=== PATIENT | female | born 1955 | race Caucasian/White ===

== ENCOUNTER 2019-06-29 01:05 | Day surgery (SDC) | payer MEDICARE, OTHER, SELFPAY ==
[2019-06-18 14:46] VITALS: BMI 37.1
--- NOTE | 2019-06-28 11:36 | HP_ITS ---
DATE OF SERVICE: DATE OF SURGERY: 06/29/2019. CHIEF COMPLAINT: Postmenopausal bleeding. HISTORY OF PRESENT ILLNESS: The patient is a 63-year-old menopausal female who presented to the office in May due to complaints of having a 7-day period. She denied any cramping. She did have a subsequent ultrasound. The ultrasound showed the endometrial complex of 17 mm, also noted to have a 1.8 cm right ovarian cyst. It was recommended to do followup in a year. The patient does not have any pelvic pain. She was informed possible etiologies of the postmenopausal bleeding to include possible polyp, precancer or cancerous cells or hyperplasia. She was informed of the options of office endometrial biopsy and risks, benefits, limitations discussed with her versus a hysteroscopy, dilation and curettage and biopsy of any abnormal areas as needed. The patient opted for the direct visualization. The patient does have a history of being on hormone replacement therapy, but she has been off the hormone replacement therapy for over 6 months. PAST MEDICAL HISTORY: She has: 1. Hypothyroidism. 2. Also history of chronic hypertension. 3. Asthma. 4. History of overactive bladder. 5. History of gastroesophageal reflux. ALLERGIES: NO KNOWN DRUG ALLERGIES. SURGERIES: She has had sinus surgery. SOCIAL HISTORY: No alcohol, no tobacco, no drugs. FAMILY HISTORY: Diabetes with father and sister. Maternal grandmother with the unspecified cancer. Mother with history of heart disease. Sister with history of stroke. Father with history of hypertension. MEDICATION: 1. Levothyroxine 100 mcg. 2. Metoprolol ER 100 mg once a day. 3. Omeprazole 20 mg once a day. 4. Spiriva once a day. 5. VESIcare 10 mg once a day. 6. Breo 1 inhalation once a day. REVIEW OF SYSTEMS: CONSTITUTIONAL: Negative. HEENT: Negative. CARDIOVASCULAR: No chest pain. RESPIRATORY: Stable cough on medication. GASTROINTESTINAL: Negative. GENITOURINARY: Controlled overactive bladder with medication. GYNECOLOGIC: Per HPI. PSYCHIATRIC: Negative. PHYSICAL EXAMINATION: VITAL SIGNS: Height is 5 feet 6 inches, her weight is 230, blood pressure 129/84, pulse 79, respirations 12. GENERAL: The patient is a 63-year-old female. No deformities. HEENT: Pupils equal, round, reactive to light. Nose and throat are clear. CARDIOVASCULAR: Regular rate and rhythm. LUNGS: Clear to auscultation bilaterally. ABDOMEN: Soft, nontender, nondistended. No masses. BACK: No CVA tenderness. EXTREMITIES: Nontender. PELVIC: Normal external female genitalia. Vagina, she had a small amount of blood in the vault of cervix. No active bleeding. Bimanual exam, uterus was normal size, shape and consistency, nontender. Adnexa, nontender bilaterally. No masses palpated bilaterally. Perineum was normal. ASSESSMENT: 1. Postmenopausal bleeding. 2. Abnormal thickened endometrium. PLAN: The patient has opted to do direct visualization with diagnostic hysteroscopy, dilation and curettage, possible MyoSure of the abnormal areas as needed. She has been counseled regarding her nonsurgical options. Risks and benefits of surgery to include bleeding, infection, injury to other organs in the area, risk of further more intensive surgeries in the future if there are any abnormalities with the pathology, risk of uterine perforation, bleeding, laparoscopy, blood transfusion, risk of accumulation of fluid in the lungs. Her questions were answered. The patient agrees with the procedure. D I MT: Kimmy
[2019-06-29] MEDS: LACTATED RINGERS 1,000 ML 30 ML IV CONT (07:01)
[2019-06-29 07:14] VITALS: BP 127/67; PULSE 66; RESP 16; TEMP 37.1; O2SAT 95
--- NOTE | 2019-06-29 07:42 | WPDANESEPPF ---
Anes - Initial Pre Proc Eval Procedure: Operation Date: 06/29/19 08:30 Proposed Procedures p Hysteroscopy Dilation and Curettage - Germán Mora MD Date/Time: 06/29/19 07:42 Surgeon: Germán Mora MD Pre Op Diagnosis: Post Menopausal Bleeding Patient Data Age: 63 Gender: F Height: 1.68 m Weight: 101.3 kg Last Vital Signs Temp 37.1 C 06/29/19 07:14 Pulse 66 06/29/19 07:14 Resp 16 06/29/19 07:14 BP 127/67 06/29/19 07:14 Pulse Ox 95 06/29/19 07:14 Allergies Allergy/AdvReac Type Severity Reaction Status Date / Time No Known Allergies Allergy Verified 06/29/19 07:29 Home Medications Medication Instructions Recorded Confirmed Type calcium carb and citrate-vitD3 1 tablet PO DAILY 06/18/19 06/18/19 History cholecalciferol (vitamin D3) 2,000 unit PO DAILY 06/18/19 06/18/19 History cyanocobalamin (vitamin B-12) 2,500 mcg PO DAILY 06/18/19 06/18/19 History docosahexanoic acid 450 mg PO DAILY 06/18/19 06/18/19 History fluticasone propionate 2 spray INTRANASAL DAILY 06/18/19 06/18/19 History glucosamine [id number] 1 tablet PO DAILY 06/18/19 06/18/19 History levothyroxine 112 mcg PO DAILY 06/18/19 06/29/19 History metoprolol succinate 25 mg PO HS 06/18/19 06/29/19 History omeprazole 20 mg PO DAILY 06/18/19 06/18/19 History solifenacin [Vesicare] 10 mg PO DAILY 06/18/19 06/18/19 History vit A,C and E-dietary suppl#12 1 tablet PO DAILY 06/18/19 06/18/19 History ECG: Date of Service: 06/25/19 Procedure(s): CA 12 lead EKG Accession Number(s): [id number] cc: ~ Measurements Intervals [place] Rate: 64 P: 25 [place]: 205 QRS: -14 QRSD: 88 T: 5 QT: 385 QTc: 397 Interpretive Statements SINUS RHYTHM BORDERLINE AV CONDUCTION DELAY VOLTAGE CRITERIA FOR LVH DELAYED PRECORDIAL R/S TRANSITION BASELINE ARTIFACT- I, II, AVR, AVL BORDERLINE ECG Electronically Signed On 06-25-2019 10:50:33 ACID WASH OPERATOR by Lee Jewell D.O. Patient hx anesthesia problems: none Family hx anesthesia problems: none Prior Surgeries: FESS JUL 2017 & OCTOBER 2017 @ [facility] JUL 2018 [facility] Past Medical History Medical History (Updated 06/29/19 @ 07:46 by Earl Oneal MD) Arthritis (Acute) Chronic cough (Acute) HTN (hypertension) (Acute) Hypothyroidism (Acute) Osteoporosis (Acute) Family History Family History (Updated 04/24/19 @ 13:30 by DOCTOR UNKNOWN) Father Hypertension Family history of diabetes mellitus in first degree relative Sibling Family history of diabetes mellitus in first degree relative Grandparent Family history of malignant neoplasm Social History Social History Smoking status: Never smoker Second hand tobacco smoke exposure: No Alcohol intake: current Anes - Eval Final PreProcedure Day of Procedure 06/29/19 07:42 Patient weight: obese Heart: regular rate and rhythm Lungs: clear to auscultation and normal air movement Airway: Mallampati scale Neurological: alert and oriented Last oral intake: >/= 8 hours ASA classification: III Emergent: no Anesthetic plan: proceed Anesthesia type and monitoring: general LMA Informed Consent: The patient's anesthetic plan and its attendant risks and benefits were discussed with the patient/family/POA. Questions were solicited and answers provided to the satisfaction of the patient/family/POA.
--- NOTE | 2019-06-29 08:18 | WPDHPUPDATE1 ---
History and Physical Update Update Date/Time: 06/29/19 08:18 History and Physical has been reviewed, including an updated exam of the patient. There are NO changes in the patient's condition. Risks, benefits, and alternatives have been discussed and questions answered. Patient agrees to proceed with procedure.
[2019-06-29] MEDS: LIDOCAINE HCL 1% LOCAL INJ 20 ML VIAL 50 ML INFILTRATE (08:49)
[2019-06-29] MEDS: KETOROLAC 30 MG/ML VIAL (*BKC) IV PUSH (08:56)
--- NOTE | 2019-06-29 09:01 | PM.PROC ---
Date of procedure: 06/29/19 Pre-op diagnosis: Post Menopausal Bleeding Post-op diagnosis: same Procedure performed: Diagnostic Hysteroscopy and Dilation and Currettage Description of procedure: After informed consent was obtained patient was taken to the operating room. Adequate IV sedation was obtained. she was placed in high lithotomy position and prepped and draped in sterile fashion. Attention was turned to the vagina. Speculum was inserted. Single-tooth tenaculum placed on anterior lip of the cervix. The uterus was sounded to 8 centimeters. The cervix was dilated to a size 8 Borrero dilator. The hysteroscope was inserted. The cavity assessment was normal. There are no lesions or abnormal areas noted. The hysteroscope was removed and a sharp curettage was performed. Scant tissue obtained. An endocervical curettage was also performed. The tenaculum was removed hemostasis was noted at the tenaculum site. The speculum was removed. The patient tolerated the procedure well. There was a 50 cc discrepancy of insufflation fluid of normal saline. Patient was taken to recovery room in stable condition the sponge count was correct x3. Anesthesia: MAC and local Surgeon: Germán Mora MD Estimated blood loss (mL): 5 Drains: No Packing: No Pathology: yes (1. Endocervical currettage 2. Endometrial currettings) Complications: No immediate complications Condition: stable Disposition: same day Findings: Uterus sound to 8cm, uterine cavity normal appearing, no lesions. Insufflation fluid 450ccI/400ccout.
[2019-06-29 09:10] VITALS: BP 101/57; PULSE 65; RESP 16; O2SAT 94
[2019-06-29 09:30] VITALS: BP 123/74; PULSE 60; RESP 15
--- NOTE | 2019-06-29 09:42 | SUR.OPER ---
ESTIMATED BLOOD LOSS- 5 ML
[2019-06-29 10:00] VITALS: BP 116/70; PULSE 59; RESP 15
[2019-06-29 10:17] LABS: Add Urine Microscopic? YES; Appearance Urine Cloudy (Clear); Bacteria Urine Trace /hpf; Bilirubin Urine Negative (Negative); Blood Urine 3+ (Negative); Color Urine Yellow (Yellow); Glucose Urine UA Negative (Negative); Ketones Urine Negative (Negative); Leukocyte Esterase Ur 3+ LEU/UL (Negative); Mucus Urine Rare /lpf; Nitrate Urine Positive (Negative); Protein Urine Negative (Negative); RBC Urine >75 /hpf (0-2); Specific Grav Ur 1.019 (1.001-1.035); Squamous Epithelial Cell Urine Rare /hpf (Few); Urobilinogen Urine Negative mg/dL (<2.0); WBC Clumps Urine Present /HPF; WBC Urine >75
== END 2019-06-29 10:08 | disposition home or self-care (01) ==
PROVIDERS: PCP Family Medicine; Visit Provider Obstetrics & Gynecology
PROC: 0U5B8ZZ Destruction of Endometrium, Via Natural or Artificial Opening Endoscopic (ICD-10-PCS; CPT 58563; principal; 2019-06-29 08:30)
DX: N95.0 Postmenopausal bleeding (principal); N85.8 Other specified noninflammatory disorders of uterus; I10 Essential (primary) hypertension; E03.9 Hypothyroidism, unspecified; M81.0 Age-related osteoporosis without current pathological fracture; M19.90 Unspecified osteoarthritis, unspecified site; E66.9 Obesity, unspecified; Z68.36 Body mass index [BMI] 36.0-36.9, adult; Z79.899 Other long term (current) drug therapy
CPT/HCPCS: 58558; 81001; 87086; 87088; 88305; A9270; J0131; J0690; J1885; J2250; J2704; J3010; J7030; J7120

== ENCOUNTER → 2020-10-01 17:40 | Outpatient (CLI) | payer MEDICARE, SELFPAY ==
--- NOTE | ~2020-10-01 | DEXA_ITS ---
Bone Density Report Name: Mayi Nielson Age: 64 Sex: Female Ethnicity: White Date of : 1955 Indication: postmenopausal; screening for osteoporosis; Referring Provider: NIKKI REILLY Study: Bone densitometry was performed. Exam Date: October 01, 2020 Accession number: [id number] Bone Density: Region BMD T-score Z-score Classification AP Spine (L1-L4) 0.995 -0.5 1.4 Normal Femoral Neck (Left) 0.763 -0.8 0.8 Normal Total Hip (Left) 0.910 -0.3 1.1 Normal Femoral Neck (Right) 0.801 -0.4 1.2 Normal Total Hip (Right) 0.978 0.3 1.6 Normal Total Hip Mean 0.944 0.0 1.4 Normal World Health Organization criteria for BMD impression classify patients as: Normal (T-score at or above -1.0), Osteopenia (T-score between -1.0 and -2.5), or Osteoporosis (T-score at or below -2.5). 10-year Fracture Risk: FRAX not reported because: All T-scores for Spine Total, Hip Total, Femoral Neck at or above -1.0 Previous Exams: Region Exam Age BMD T-score BMD Change BMD Change Date g/cm2 vs Baseline vs Previous AP Spine(L1-L4) 10/01/2020 64 0.995 -0.5 0.107* 0.038* 07/07/2018 62 0.957 -0.8 0.069* -0.029* 04/22/2016 60 0.986 -0.6 0.098* -0.034 02/16/2013 57 1.020 -0.2 0.132 0.061* 12/25/2010 55 0.959 -0.8 0.071 -0.097* 10/11/2008 52 1.056 0.1 0.168 0.133 10/10/2006 50 0.922 -1.1 0.034* 0.034* 08/16/2005 49 0.888 -1.4 Total Hip(Left) 10/01/2020 64 0.910 -0.3 -0.030* -0.047* 07/07/2018 62 0.957 0.1 0.018 -0.033* 04/22/2016 60 0.990 0.4 0.050* 0.059 02/16/2013 57 0.931 -0.1 -0.009 0.015 12/25/2010 55 0.916 -0.2 -0.023 0.015 10/11/2008 52 0.901 -0.3 -0.038 -0.038 10/10/2006 50 0.939 0.0 Total Hip(Right) 10/01/2020 64 0.978 0.3 -0.039* -0.020 07/07/2018 62 0.998 0.5 -0.019 -0.052* 04/22/2016 60 1.050 0.9 0.033* 0.091 02/16/2013 57 0.958 0.1 -0.058 -0.021 12/25/2010 55 0.979 0.3 -0.038 -0.004 10/11/2008 52 0.983 0.3 -0.034 -0.034 10/10/2006 50 1.017 0.6 *Denotes significance at 95% confidence level, LSC for AP Spine = 0.022 g/cm2, LSC for Total Hip = 0.027 g/cm2 Clinical Information Provided by Patient:
--- NOTE | ~2020-10-01 | MM_ITS ---
EXAMINATION: MM screening denis BI w osvaldo HISTORY: Screening mammogram TECHNIQUE: Craniocaudal and mediolateral oblique 3-D tomosynthesis images were obtained and synthetic 2-D images were generated. CAD analysis was submitted and interpreted. COMPARISON: 03/30/2019 diagnostic right digital mammogram and limited right breast ultrasound 03/22/2019, 02/23/2018, 04/22/2016 bilateral digital screening mammogram examinations BREAST PARENCHYMAL COMPOSITION: There are scattered areas of fibroglandular density. FINDINGS: There are 2 biopsy markers on the right; history of 2 prior benign right breast biopsies. S cattered benign calcifications are noted. There is no evidence of suspicious mass, calcification, or architectural distortion to suggest malignancy in either breast. There has been no suspicious interva l change. IMPRESSION: 1. No mammographic evidence of malignancy. 2. Recommend routine screening mammography in one year. BI-RADS Category 2: Benign finding(s). Reviewed, dictated and finalized at location A. ER SELECTOR
== END ==
PROVIDERS: Visit Provider Obstetrics & Gynecology
DX: Z12.31 Encounter for screening mammogram for malignant neoplasm of breast (principal); Z78.0 Asymptomatic menopausal state
CPT/HCPCS: 77063; 77067; 77080

== ENCOUNTER → 2020-10-23 15:44 | Outpatient (CLI) | payer MEDICARE, SELFPAY ==
--- NOTE | ~2020-10-23 | MR_ITS ---
EXAMINATION: MR knee LT wo con DATE: 10/23/2020 16:47 INDICATION: Left knee pain TECHNIQUE: Magnetic resonance imaging (MRI) of the left knee was performed without intravenous contra st. Sequences included coronal PD-weighted FSE, coronal PD-weighted FS FSE, sagittal T2-weighted FSE , sagittal PD-weighted FS FSE and axial PD weighted fat saturated FSE. COMPARISON: None. FINDINGS: Medial compartment: Medial meniscus is normal. Partial-thickness cartilage loss with relatively smooth chondral surface a long the anterior weightbearing medial femoral condyle. More preserved cartilage thickness but with d eeper fissuring and subtle underlying cortical irregularity along the posterior weightbearing medial femoral condyle. Cartilage along the medial tibial plateau is relatively preserved. Lateral compartment: Complex tear of the lateral meniscus. This includes a partial thickness radial tear near the posterio r root, a longitudinal horizontal tear plane extending from the lateral aspect of the posterior horn and crosses the meniscal body to the anterior horn with more irregular macerated appearance at the ju nction of the body and anterior horn where the meniscus is extruded. Partial-thickness cartilage loss with chondral surface regularity throughout the weightbearing lateral femoral condyle with more foca l deep fissuring and underlying subarticular edema at the central weightbearing lateral femoral condy le. Additional partial thickness cartilage loss in place appearing to push full-thickness along the l ateral tibial plateau with there is also minimal underlying subarticular edema. Moderate size margina l osteophytes are present. Patellofemoral compartment: Full/near full-thickness cartilage loss with underlying subarticular edema at the cephalad half of th e lateral patellar facet. Additional deep chondral ulceration with underlying mild cortical irregular ity and minimal cystic change along the caudal half of the lateral trochlea. A severe partial thickne ss cartilage loss along the cephalad aspect of the lateral trochlea. Small to moderate-sized patellar and trochlear marginal osteophytes. Ligaments and tendons: Anterior and posterior cruciate ligaments are normal. The medial collateral ligament and fibular selvin ateral ligament complex are normal. The extensor mechanism is normal. The visualized medial and later al hamstring tendons as well as the iliotibial band are normal. Fluid: Small left knee joint effusion. There is a small ossicle along the cephalad rim of the lateral patell ar facet which appears unchanged in position compared with the prior radiographs suggesting it is fix ed rather than loose. No other loose osteochondral bodies identified. Osseous/other: Bone alignment is normal. No fracture or pathologic marrow replacing process. IMPRESSION: 1. Complex lateral meniscal tear. 2. 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 Reviewed, dictated and finalized at location B. PHONE ANSWERER IMPRESSION: 1. Complex lateral meniscal tear. 2. 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
== END ==
PROVIDERS: Visit Provider Nurse Practitioner Family
DX: S83.272A Complex tear of lateral meniscus, current injury, left knee, initial encounter (principal); X58.XXXA Exposure to other specified factors, initial encounter
CPT/HCPCS: 73721

== ENCOUNTER → 2021-04-23 03:25 | Outpatient (CLI) | payer MEDICARE, SELFPAY ==
[2021-04-23 19:18] LABS: SARS-CoV-2 RNA PCR Negative
== END ==
PROVIDERS: PCP Family Medicine; Visit Provider Nurse Practitioner
DX: Z20.822 Contact with and (suspected) exposure to COVID-19 (principal)
CPT/HCPCS: C9803; U0003; U0005

== ENCOUNTER 2021-10-21 09:00 | Outpatient (RCR) | payer MEDICARE, SELFPAY ==
--- NOTE | 2021-09-16 11:31 | PTOPEVAL ---
PHYSICAL THERAPY EVALUATION AND PLAN OF CARE Thank you for referring Mayi Nielson to [facility].? The patient is scheduled to be seen for therapy? _1x/week for 4 weeks for pelvic floor therapy and training. Please review, sign, date and return this plan of care ETHAN. I agree with and certify that the following plan of care is medically necessary. Referring Physician Date Attending Provider: Germán Mora MD Evaluation Outpatient Past Medical History Cardiovascular History Hx Hypertension Yes Hx Other Cardiac Disorders Yes: PT DENIES ANY CARDIAC SYMPTOMS Genitourinary History Hx Bladder Surgery Yes: SLING JUL 2018 Musculoskeletal History Hx Arthritis Yes: RT HIP Hx Osteoporosis Yes Endocrine History Hx Hypothyroidism Yes HEENT History Hx Sinus Problems Yes: FESS JUL 2017 & OCTOBER 2017 @ [facility] Hx Other HEENT Disorders Yes: DYSFUCTIONAL VOCAL CORDS/ CHRONIC COUGH. SEES DR. MA [phone] EXT [id number] Instance of Pain Anesthesia History Hx Other Anesthesia Reactions Yes: DYSFUNCTIONAL VOCAL CORDS Diagnosis bladder prolapse, stress incontinence Subjective Information Mayi is here today with Query Text:As Reported By Patient/ complaints of stress Family incontinence. She does have a bladder prolapse and does have a mesh in place which has helped a lot. She has incontinence with coughing when she has a full bladder. Changes panty liner once a day . Does get up just 1 time in the middle of the night. She does describe experiencing urge incontinence when she is stores and when she walks into her house. She notes a couple of times not making it to the bathroom in time. 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 Pain Score Pain Score 0: Self Report Lower Extremity Range of Motion General Lower Extremity Range of Motion Reason Not Measured WFL/Left,WFL/Right Cervical and Lumbar Muscle Testing Lumbar Strength Lower Abdominal Strength 2+Poor+ Lower Extremity Muscle Strength Testing Hip Strength Bilateral Hip Flexion Strength
--- NOTE | 2021-10-08 13:32 | PCPTNOTE ---
Patient called & cancelled scheduled appointment this date due to weather.
--- NOTE | 2021-10-21 09:35 | PTOPEVAL ---
PHYSICAL THERAPY DISCHARGE NOTE Thank you for referring Mayi Nielson to [facility].? Please review, sign, date and return this plan of care ETHAN. I agree with and certify that the following plan of care is medically necessary. Referring Physician Date Attending Provider: Germán Mora MD Discharge Diagnosis bladder prolapse, stress incontinence Subjective Information States that she feels like she Query Text:As Reported By Patient/ is able to control her urges Family a little better. Thinks that she does not always empty her bladder really well which makes her go to the bathroom more often. States that in the mornings she goes to the toilet more frequently and thinks this is related to not emptying fully but also the coffee she drinks. Pain Assessment Timing of Pain Assessment Timing of Pain Assessment Assessment Self Report Self Report Pain Level 0 Pain Score Pain Score 0: Self Report Rehab Teaching Rehab Teaching Teaching Topic Rehab Teaching Topic Components Anatomy/Physiology,Diagnosis, Home Program As Pertains To Plan of Care Discussion,Safety ,Technique,Therapy Prognosis Recipient Patient Learning Preferences Demonstration,Discussion,One- on-One Instruction Barriers to Learning None Readiness to Learn Good Response Returns Demonstration, Verbalizes Understanding Method Demonstration,Discussion, Handout,One-On-One Instruction Additional Rehab Teaching Comments re-inforced bladder training and using strategies to reduce urge/leakage PT Clinical Summary Mayi is a 65 yo female presenting to outpatient physical therapy with diagnosis of gential prolapse and describes symptoms consistent with a mix of stress and urge incontinence. She has been doing her exercises daily and praciticing strategies to reduce urge incontinence. Mayi feels comfortable with
== END 2021-10-22 10:20 | disposition home or self-care (01) ==
LOC: ANHPT 09:00
PROVIDERS: PCP Family Medicine; Visit Provider Obstetrics & Gynecology
DX: N81.89 Other female genital prolapse (principal)
CPT/HCPCS: 97110; 97162; 97530

== ENCOUNTER → 2021-11-10 12:46 | Outpatient (CLI) | payer MEDICARE, SELFPAY ==
--- NOTE | ~2021-11-10 | MM_ITS ---
EXAMINATION: MM screening denis BI w osvaldo HISTORY: Screening mammogram TECHNIQUE: Craniocaudal and mediolateral oblique 3-D tomosynthesis images were obtained and synthetic 2-D images were generated. CAD analysis was submitted and interpreted. COMPARISON: July 01, 2021 bilateral screening mammogram 03/30/2019 diagnostic right mammogram and limited right breast ultrasound 03/22/2019 bilateral screening mammogram BREAST PARENCHYMAL COMPOSITION: The breasts are almost entirely fatty. FINDINGS: Scattered benign calcifications, more numerous on the right. There is no evidence of suspic ious mass, calcification, or architectural distortion to suggest malignancy in either breast. There h as been no suspicious interval change. IMPRESSION: 1. No mammographic evidence of malignancy. 2. Recommend routine screening mammography in one year. BI-RADS Category 2: Benign finding(s). Reviewed, dictated and finalized at location A.
== END ==
PROVIDERS: PCP Family Medicine; Visit Provider Obstetrics & Gynecology
DX: Z12.31 Encounter for screening mammogram for malignant neoplasm of breast (principal)
CPT/HCPCS: 77063; 77067

== ENCOUNTER 2022-02-12 12:59 | Outpatient (CLI) | payer MEDICARE, SELFPAY ==
--- NOTE | ~2022-02-12 | XR_ITS ---
EXAMINATION: XR lg joint inject/asp w image DATE: 02/12/2022 14:03 INDICATION: Severe osteoarthritis of right shoulder. TECHNIQUE: A time-out was performed to verify the patient's name, date of , and procedure to b e performed. The procedure including the risks, benefits, and alternatives was discussed with the pat ient. Risks discussed included bleeding and infection. The patient understood the risks and agreed to proceed. The skin overlying the right glenohumeral joint was prepped and draped in usual sterile fa shion. Anesthetic was administered with 1% lidocaine subcutaneously. A 22 G needle was advanced und er fluoroscopic guidance into the joint. Injection of 1 mL of Omnipaque 240 confirmed intra-articula r position of the needle. Subsequently, injectate consisting of 3 mL 1% lidocaine and 1 mL 80 mg/mL Depo-Medrol was instilled. The needle was removed and the entry site was cleaned and dressed. There were no immediate complications. Fluoroscopy exposure time was 0.0 minutes. The total number of imag es was 2. FINDINGS: Real-time fluoroscopy demonstrates the needle in the right glenohumeral joint. Patient's pa in prior to procedure:02/28. Patient's pain following the procedure: 11/29. IMPRESSION: 1. Fluoroscopy guided right glenohumeral joint injection of local anesthetic and steroid with decreas e in the patient's presenting pain. Reviewed, dictated and finalized at location A. IMPRESSION: 1. Fluoroscopy guided right glenohumeral joint injection of local anesthetic an d steroid with decrease in the patient's presenting pain.
== END 2022-02-12 13:00 | disposition home or self-care (01) ==
PROVIDERS: PCP Family Medicine; Visit Provider Orthopaedic Surgery
DX: M19.011 Primary osteoarthritis, right shoulder (principal)
CPT/HCPCS: 20610; 77002; J1040; Q9966

== ENCOUNTER 2022-07-22 14:55 | Outpatient (CLI) | payer MEDICARE, SELFPAY ==
[2022-07-22 19:20] LABS: Influenza A QL RT-PCR Positive (Negative); Influenza B QL RT-PCR Negative (Negative); RSV RNA, RT-PCR Negative (Negative); SARS-CoV-2 RNA PCR Negative
== END 2022-07-22 14:56 | disposition home or self-care (01) ==
LOC: ANHGOSHLAB 15:47
PROVIDERS: PCP Family Medicine; Visit Provider Nurse Practitioner Family
DX: R68.89 Other general symptoms and signs (principal); Z20.822 Contact with and (suspected) exposure to COVID-19
CPT/HCPCS: 87637

== ENCOUNTER → 2022-07-30 13:38 | Outpatient (CLI) | payer MEDICARE, SELFPAY ==
--- NOTE | ~2022-07-30 | US_ITS ---
EXAMINATION: US thyroid DATE: 07/30/2022 14:06 INDICATION: Nontoxic goiter, unspecified. TECHNIQUE: Multiple ultrasound images of the thyroid were obtained. COMPARISON: None. FINDINGS: The right thyroid lobe measures 4.1 x 1.3 x 1.7 cm. The left thyroid lobe measures 4.0 x 1.0 x 0.8 c m. In the right thyroid lobe, there is a 7 mm solid, isoechoic, wider than tall nodule with ill-defi lyudmila margin without echogenic foci (TI-RADS TR3). In the right thyroid lobe, there is a 12 mm solid, h ypoechoic, wider than tall nodule with ill-defined margin without echogenic foci (TR4). In the left t hyroid lobe, there is a 9 mm solid, isoechoic, wider than tall nodule with macrocalcifications (TR4). IMPRESSION: 1. Multinodular goiter. Thyroid ultrasound is recommended in one year. Reviewed, dictated and finalized at location A. GAME DESIGNER
== END ==
PROVIDERS: PCP Nurse Practitioner Family; Visit Provider Nurse Practitioner Family
DX: E04.2 Nontoxic multinodular goiter (principal)
CPT/HCPCS: 76536

== ENCOUNTER 2022-09-30 09:26 | Outpatient (CLI) | payer MEDICARE, SELFPAY ==
--- NOTE | ~2022-09-30 | CT_ITS ---
EXAMINATION: CT sinus wo con DATE: 09/30/2022 09:47 INDICATION: Chronic sinusitis. TECHNIQUE: Computed tomography (CT) of the paranasal sinuses was performed without intravenous contra st. Iterative reconstruction technique was employed. The dose-length product was 306.67 mGy-cm. COMPARISON: CT sinuses 12/30/2017 FINDINGS: There is mucosal thickening in the frontal sinuses, predominantly on the right. There is mi ld mucosal thickening in the ethmoid sinuses. There are changes of ethmoidectomies. There is near com plete opacification of left sphenoid sinus. There is mild mucosal thickening in the maxillary sinuses . There are bilateral uncinectomies and middle turbinectomies. The ostiomeatal units are widely paten t. There is thickening of many of the ward of the sinuses, consistent with chronic sinusitis. There is mild rightward deviation of the nasal septum. IMPRESSION: 1. Chronic sinusitis. Reviewed, dictated and finalized at location A. LAY FABRICATOR IMPRESSION: 1. Chronic sinusitis.
== END 2022-09-30 09:27 | disposition home or self-care (01) ==
PROVIDERS: PCP Nurse Practitioner Family; Visit Provider Otolaryngology
DX: J32.9 Chronic sinusitis, unspecified (principal); J34.89 Other specified disorders of nose and nasal sinuses
CPT/HCPCS: 70486

== ENCOUNTER 2022-10-29 11:03 | Outpatient (CLI) | payer MEDICARE, SELFPAY ==
--- NOTE | 2022-10-29 11:31 | ECG_ITS ---
Measurements Intervals [place] Rate: P: GA: QRS: QRSD: T: QT: QTc: Interpretive Statements SINUS BRADYCARDIA DELAYED PRECORDIAL R/S TRANSITION VOLTAGE CRITERIA FOR LVH ABNORMAL ECG NO PRIOR ECG FOR COMPARISON Electronically Signed On 10-29-2022 13:34:23 DIRECTOR OF COUNSELING by Lee Jewell D.O.
== END 2022-10-29 11:04 | disposition home or self-care (01) ==
LOC: ANHSURGERY 11:07
PROVIDERS: PCP Nurse Practitioner Family; Visit Provider Otolaryngology
DX: I10 Essential (primary) hypertension (principal); Z01.818 Encounter for other preprocedural examination
CPT/HCPCS: 93005

== ENCOUNTER 2022-11-02 01:14 | Day surgery (SDC) | payer MEDICARE, SELFPAY ==
[2022-10-28 15:15] VITALS: BMI 29.4
--- NOTE | 2022-10-28 15:24 | PC.NURSE ---
PRE-OP INSTRUCTIONS, PLEASE READ CAREFULLY Report to the Outpatient Waiting Room, entrance under the green pavilion located off [facility], at time _0930_ on date _11/02/22_. Planned Procedure Time: _1130_. Time changes happen often and if your time is changed the preop area will call you the afternoon before. - You and your visitor will be asked to self-screen and do not enter if you have any COVID symptoms. - Only one visitor is requested with a max of two and NO children visitors are allowed at this time. - The patient visitor may be requested to leave or wait in car when not with patient due to distancing restrictions. - A mask is optional within the hospital at this time. Patients may have clear liquids (water, carbonated beverages, clear teas, apple juice) until 3 hours prior to surgery (0830 AM) with a maximum of 20 ounces. - No food from midnight until time of surgery Take the following medications with a SIP of water the morning of surgery: _LEVOTHYROXINE, GABAPENTIN, NASAL SPRAY_ DO NOT STOP ANY OF YOUR OTHER PRESCRIPTION MEDICATIONS PRIOR TO SURGERY ?EXCEPT THE FOLLOWING Medications to discontinue - _MELOXICAM PER DR. THOMAS'S INSTRUCTIONS__ Medications to discontinue per ANESTHESIA -_ALL VITAMINS AND SUPPLEMENTS 3 DAYS PRIOR TO SURGERY, Date to take last dose 10/29/22_ Please no make-up, nail peruvian, hairspray, perfume, deodorant, or body powder the day of surgery. No jewelry (including any body piercings) or valuables the day of surgery, leave them at home. Please take a shower or bath the night before, or the morning of, surgery with an antibacterial soap. Wear comfortable, loose fitting clothing. - Jewelry must be removed prior to entering the operating room. Rings and piercings that are not removed may be cut off. - The hospital will not accept responsibility for valuables. - Please leave all valuables, including medications, at home the day of surgery. If you are going home after surgery, a licensed driver sales must drive you home. - NO public transportation without another adult if you receive anesthesia. - We recommend that an adult stay with you for 24 hours following discharge. - We also recommend that you do not drive, make important decision, drink alcoholic beverages, or take any drugs that were not prescribed by your health care provider for at least 24 hours after your discharge time. Follow any additional instructions given to you from your surgeon. If you or anyone in your household have experienced Covid symptoms in the past week, please notify your surgeon or the nurse liaison at the phone number below for possible testing. Telephone instructions given to _PATIENT_and asked if any additional questions and then verbalized understanding. Patient advised to call surgeon office or pre surgery nurse liaison [phone] if any additional questions.
--- NOTE | 2022-11-01 19:39 | PM.IMHP ---
H&P: HPI History of Present Illness Date/Time: 11/01/22 19:39 Chief Complaint: Chronic sinusitis Narrative: PLanned surgical procedure Review of Systems Review of Systems: All systems reviewed & are unremarkable except as noted in HPI and below PMFSH Past Medical History Medical History Aftercare following right shoulder joint replacement surgery Arthritis Chronic cough History of vaginal delivery HTN (hypertension) Hypothyroidism Osteoporosis Stress incontinence Vitamin D deficiency Surgical History Surgical History H/O shoulder surgery (~06/16/22) History of dilation and curettage Family History Family History Father Hypertension Family history of diabetes mellitus in first degree relative Sibling Family history of diabetes mellitus in first degree relative Grandparent Family history of malignant neoplasm Sibling Cerebrovascular accident Social History Social History Social History: Mayi is , she lives with her Gorge in [place]. She is unemployed. Smoking status: Never smoker Second hand tobacco smoke exposure: No Alcohol intake: current Alcohol use details: 1/MONTH Substance use: never Substance use type: does not use Lack of Transportation: No Lack of Food: Never True Current Housing: I Have Housing Concerned About Future Housing: No Difficulty Paying Gas/Electric Bills: No Difficulty Paying for Meds: No Currently Unemployed: No Education: Bachelor's Degree Difficulty w/ Childcare or Family Care: No Living arrangements: with family Spiritual care concerns: No Meds Home Medications and Allergies Home Medications Medication Instructions Recorded Confirmed Type calcium carb,cit ER 600 mg-vit D3 1 tablet PO DAILY 06/18/19 10/28/22 History 12.5 mcg (500 unit) tablet,ext.rel cholecalciferol (vitamin D3) 50 2,000 unit PO DAILY 06/18/19 10/28/22 History mcg (2,000 unit) capsule cyanocobalamin (vitamin B-12) 2,500 mcg PO DAILY 06/18/19 10/28/22 History 2,500 mcg tablet glucosamine sulfate 2KCl 500 1 tablet PO DAILY 06/18/19 10/28/22 History mg-msm 166.6 mg-chondroitin 400 mg tablet docosahexaenoic acid 300 mg 300 mg PO DAILY 07/29/20 10/28/22 History capsule (DHA Algal-900) montelukast 10 mg tablet 10 mg PO DAILY #90 tabs 03/23/22 10/28/22 Rx omeprazole 20 mg capsule,delayed 20 mg PO DAILY #90 caps 04/01/22 10/28/22 Rx release fluticasone propionate 50 2 spray intranasal BID 04/19/22 10/28/22 History mcg/actuation nasal spray,suspension levothyroxine 112 mcg tablet 112 mcg PO DAILY #90 tabs 06/23/22 10/28/22 Rx gabapentin 100 mg capsule 100 mg PO TID 06/24/22 10/28/22 History meloxicam 7.5 mg tablet 7.5 mg PO DAILY #90 tabs 07/12/22 10/28/22 Rx metoprolol succinate 100 mg 100 mg PO DAILY #90 tabs 09/20/22 10/28/22 Rx tablet,extended release 24 hr solifenacin 10 mg tablet (Vesicare) 10 mg PO DAILY #90 tabs 09/20/22 10/28/22 Rx Nueriva 1 cap DAILY 10/28/22 10/28/22 History Allergies Allergy/AdvReac Type Severity Reaction Status Date / Time No Known Allergies Allergy Verified 10/28/22 15:10 Exam Narrative: chronic sinus Assessment and Plan Assessment and plan (1) Chronic sinusitis: Code(s): J32.9 - Chronic sinusitis, unspecified Status: Acute Assessment and Plan: OR bilateral image guided endoscopic frontal sinusotomies right with tissue and left sphenoidotomy. Risks bleding infection blindness change in vision csf leak need for follow up time off work post op bleeding failure to resolve symptoms (2) Nasal crusting: Code(s): J34.89 - Other specified disorders of nose and nasal sinuses Status: Acute
[2022-11-02] VITALS (8 sets, daily range): BP systolic 111–131; BP diastolic 52–90; PULSE 58–72; RESP 14–23; TEMP 36.6; O2SAT 95–100
--- NOTE | 2022-11-02 07:18 | WPDHPUPDATE1 ---
History and Physical Update Update Date/Time: 11/02/22 07:18 History and Physical has been reviewed, including an updated exam of the patient. There are NO changes in the patient's condition. Risks, benefits, and alternatives have been discussed and questions answered. Patient agrees to proceed with procedure.
--- NOTE | 2022-11-02 08:24 | WPDHPUPDATE1 ---
History and Physical Update Update Date/Time: 11/02/22 08:24 Add possible septoplasty
[2022-11-02] MEDS: ACETAMINOPHEN 500 MG TABLET 1000 MG PO (09:52)
[2022-11-02] MEDS: LACTATED RINGERS 1,000 ML 30 ML IV CONT ×3 (10:10→14:13)
--- NOTE | 2022-11-02 10:57 | WPDANESEPPF ---
Anes - Initial Pre Proc Eval Procedure: Operation Date: 11/02/22 11:30 Proposed Procedures p Image Guided Endoscopic Bilateral Frontal Sinusotomy, Left Sphenoidotomy without Tissue Removal - Clarence Liu MD Date/Time: 11/02/22 10:57 Surgeon: Clarence Liu MD Pre Op Diagnosis: Chronic Sinusitis Patient Data Age: 66 Gender: F Height: 1.68 m Weight: 83 kg Last Vital Signs Temp 36.6 C 11/02/22 09:49 Pulse 58 L 11/02/22 09:49 Resp 20 11/02/22 09:49 BP 111/67 11/02/22 09:49 Pulse Ox 97 11/02/22 09:49 O2 Del Method Room Air 11/02/22 09:49 Allergies Allergy/AdvReac Type Severity Reaction Status Date / Time No Known Allergies Allergy Verified 11/02/22 09:52 Home Medications Medication Instructions Recorded Confirmed Type calcium carb,cit ER 600 mg-vit D3 1 tablet PO DAILY 06/18/19 11/02/22 History 12.5 mcg (500 unit) tablet,ext.rel cholecalciferol (vitamin D3) 50 2,000 unit PO DAILY 06/18/19 11/02/22 History mcg (2,000 unit) capsule cyanocobalamin (vitamin B-12) 2,500 mcg PO DAILY 06/18/19 11/02/22 History 2,500 mcg tablet glucosamine sulfate 2KCl 500 1 tablet PO DAILY 06/18/19 11/02/22 History mg-msm 166.6 mg-chondroitin 400 mg tablet docosahexaenoic acid 300 mg 300 mg PO DAILY 07/29/20 11/02/22 History capsule (DHA Algal-900) montelukast 10 mg tablet 10 mg PO DAILY #90 tabs 03/23/22 11/02/22 Rx omeprazole 20 mg capsule,delayed 20 mg PO DAILY #90 caps 04/01/22 11/02/22 Rx release fluticasone propionate 50 2 spray intranasal BID 04/19/22 11/02/22 History mcg/actuation nasal spray,suspension levothyroxine 112 mcg tablet 112 mcg PO DAILY #90 tabs 06/23/22 11/02/22 Rx gabapentin 100 mg capsule 100 mg PO TID 06/24/22 11/02/22 History meloxicam 7.5 mg tablet 7.5 mg PO DAILY #90 tabs 07/12/22 11/02/22 Rx metoprolol succinate 100 mg 100 mg PO DAILY #90 tabs 09/20/22 11/02/22 Rx tablet,extended release 24 hr solifenacin 10 mg tablet (Vesicare) 10 mg PO DAILY #90 tabs 09/20/22 11/02/22 Rx Patient hx anesthesia problems: none Family hx anesthesia problems: none Results Review: All pre-operative results and documents have been reviewed as part of the pre-operative evaluation. [facility] Past Medical History Medical History (Updated 11/02/22 @ 10:58 by Allen Griffin MD) Aftercare following right shoulder joint replacement surgery Arthritis Chronic cough History of vaginal delivery HTN (hypertension) Hypothyroidism Osteoporosis Stress incontinence Vitamin D deficiency Vocal cord dysfunction Surgical History Surgical History H/O shoulder surgery (~06/16/22) History of dilation and curettage Family History Family History Father Hypertension Family history of diabetes mellitus in first degree relative Sibling Family history of diabetes mellitus in first degree relative Grandparent Family history of malignant neoplasm Sibling Cerebrovascular accident Social History Social History Social History: Mayi is , she lives with her Gorge in [place]. She is unemployed. Smoking status: Never smoker Second hand tobacco smoke exposure: No Alcohol intake: current Alcohol use details: 1/MONTH Substance use: never Substance use type: does not use Lack of Transportation: No Lack of Food: Never True Current Housing: I Have Housing Concerned About Future Housing: No Difficulty Paying Gas/Electric Bills: No Difficulty Paying for Meds: No Currently Unemployed: No Education: Bachelor's Degree Difficulty w/ Childcare or Family Care: No Living arrangements: with family Spiritual care concerns: No Anes - Eval Final PreProcedure Day of Procedure 11/02/22 10:57 Patient weight: overweight Heart: regular rate and rhythm Lungs:
[2022-11-02] MEDS: ceFAZolin 2 GM/D5W 50 ML 2 GM/50 ML BAG IVPB (11:46)
[2022-11-02] MEDS: LIDO 1%/EPINEPHRINE 1:100,000 20 ML VIAL 3 ML INFILTRATE (12:40)
--- NOTE | 2022-11-02 13:38 | SUR.OPER ---
11/02/[address] Liu called to obtain telephone consent from patient spouse Gorge, to perform right sphenoidotomy procedure. Consent granted by spouse, and witnessed by Malena Chirinos RN and Joel Hernandez RN
--- NOTE | 2022-11-02 14:37 | P.OP_ITS ---
Procedure Note - Detailed Date of Procedure 11/02/22 Pre-op Diagnosis Chronic SinusitisSeptal deviation nasal obstruction Post-op Diagnosis Same Procedure Performed image guided endoscopic bilateral sphenoidotomies bilateral frontal sin usotomies endoscopic assisted septoplasty Surgeon Clarence Liu MD Anesthesia General Indications see above Findings right septal deviation high needed to perform septoplasty adequate access following septoplasty no complications during that. Right frontals both frontals open excellently very wide the right had to be drilled pus removed from bilateral frontals bilateral sphenoids lowered to be dependent. Excellent resul t minimal bleeding. Description of Procedure Patient identified consent verified. Patient brought operating. Time-out performed. Patient prepped a position 2nd time-out performed. Image guidance initiated confirmed. Afrin-soaked pledgets placed in the nose allowed to sit for 5 minutes then removed. 0 degree endoscope utilized high right septal deviation septoplasty to be performed. 10 cc 1% lidocaine 1 100,000 parts epinephrine injected deep nasal septum. [place] incision made left-sided scarred down from previous septoplasty 7 [place] suction utilized to lift the left nasal septal flap as well as posterior combined nasal septal flap osteotome utilized to cross over anteriorly right nasal septal flap elevated [place] Benitez forceps utilized to remove the high deviation. Small right perforation extra moderate-sized right perforation no concomitant left. 250 fast gut sutures utilized close [place] incision. Sphenoidotomies located guidance they were open a which is highly dependent deep pits. Suction Bovie utilized utilized to cauterize the front of the sphenoid sinuses they were lowered using [place] as well as sphenoid punch really good result. Frontal sinuses opened with image guidance frontal sinus seeker drill Cobra and image guidance. +located both. With image guidance. Total blood loss maybe 25-50 cc. No complications. At the end all splints were trimmed placed sutured anteriorly using a 3-0 nylon interrupted her sorry mattressed. Patient did very very well. Care the patient given Anesthesiology no immediate complications patient taken to PACU I performed all dictated portions. Estimated Blood Loss -25.0 Drains No Packing No Pathology None sent Complications No immediate complications Disposition PACU [facility] Billing Surgery - Charge Forward: Surgery Billing
--- NOTE | 2022-11-02 15:08 | SUR.PHASEI ---
1500 - ride updated on pt condition.
[2022-11-02] MEDS: ONDANSETRON INJ 4 MG/2 ML VIAL IV PUSH (15:18)
== END 2022-11-02 16:27 | disposition home or self-care (01) ==
PROVIDERS: PCP Nurse Practitioner Family; Visit Provider Otolaryngology
PROC: (CPT 31276; principal; 2022-11-02 11:30)
DX: J32.9 Chronic sinusitis, unspecified (principal); J34.89 Other specified disorders of nose and nasal sinuses; J34.2 Deviated nasal septum; I10 Essential (primary) hypertension; E03.9 Hypothyroidism, unspecified; E55.9 Vitamin D deficiency, unspecified; M81.0 Age-related osteoporosis without current pathological fracture; N39.3 Stress incontinence (female) (male)
CPT/HCPCS: 31276; 31287; 61782; 30520; 93005; A9270; J0330; J0690; J1100; J2250; J2405; J2704; J3010; J7120

== ENCOUNTER → 2022-12-01 13:21 | Outpatient (CLI) | payer MEDICARE, SELFPAY ==
--- NOTE | ~2022-12-01 | MM_ITS ---
EXAMINATION: MM screening denis BI w osvaldo HISTORY: Screening mammogram TECHNIQUE: Craniocaudal and mediolateral oblique 3-D tomosynthesis images were obtained and synthetic 2-D images were generated. CAD analysis was submitted and interpreted. COMPARISON: 11/10/2021, 10/01/2020 bilateral screening mammogram examinations BREAST PARENCHYMAL COMPOSITION: There are scattered areas of fibroglandular density. FINDINGS: Stable microcalcifications of the breast, more numerous on the right, not significantly priscila nged since October 01, 2020...... There is no evidence of suspicious mass, calcification, or archite ctural distortion to suggest malignancy in either breast. There has been no suspicious interval forde e. IMPRESSION: 1. No mammographic evidence of malignancy. 2. Recommend routine screening mammography in one year. BI-RADS Category 2: Benign finding(s). Reviewed, dictated and finalized at location A.
== END ==
PROVIDERS: PCP Family Medicine; Visit Provider Obstetrics & Gynecology
DX: Z12.31 Encounter for screening mammogram for malignant neoplasm of breast (principal)
CPT/HCPCS: 77063; 77067

== ENCOUNTER 2023-02-11 12:44 | Outpatient (CLI) | payer MEDICARE, SELFPAY | END 2023-02-11 12:45 | disposition home or self-care (01) | LOC: ANHAUDASC 12:45 | PROVIDERS: PCP Family Medicine; Visit Provider Otolaryngology | DX: H91.93 Unspecified hearing loss, bilateral (principal) | CPT/HCPCS: 92557; 92567 ==

== ENCOUNTER 2023-09-21 01:47 | Day surgery (SDC) | payer MEDICARE, SELFPAY ==
[2023-08-25 15:37] VITALS: BMI 30.7
[2023-09-15 14:53] VITALS: BMI 30.7
--- NOTE | 2023-09-19 13:00 | SUR.PREOP ---
Patient called regarding upcoming procedure. Pt updated on arrival date and time. All questions answered.
[2023-09-21 09:06] VITALS: BP 96/79; PULSE 66; RESP 20; TEMP 36.1; O2SAT 99
[2023-09-21] MEDS: LACTATED RINGERS 1,000 ML 150 ML IV CONT (09:14)
--- NOTE | 2023-09-21 09:41 | WPDANESEPPF ---
Anes - Initial Pre Proc Eval Procedure: Operation Date: 09/21/23 10:30 Proposed Procedures p Screening Colonoscopy - Sharath Lindo MD Date/Time: 09/21/23 09:41 Surgeon: Sharath Lindo MD Pre Op Diagnosis: neoplasm screening Patient Data Age: 67 Gender: F Height: 1.68 m Weight: 83.7 kg Last Vital Signs Temp 97 F L 09/21/23 09:06 Pulse 66 09/21/23 09:06 Resp 20 09/21/23 09:06 BP 96/79 L 09/21/23 09:06 Pulse Ox 99 09/21/23 09:06 O2 Del Method Room Air 09/21/23 09:06 Allergies Allergy/AdvReac Type Severity Reaction Status Date / Time No Known Allergies Allergy Verified 09/21/23 09:06 Home Medications Medication Instructions Recorded Confirmed Type calcium carb,cit ER 600 mg-vit D3 1 tablet PO DAILY 06/18/19 08/25/23 History 12.5 mcg (500 unit) tablet,ext.rel cholecalciferol (vitamin D3) 50 2,000 unit PO DAILY 06/18/19 08/25/23 History mcg (2,000 unit) capsule cyanocobalamin (vitamin B-12) 2,500 mcg PO DAILY 06/18/19 08/25/23 History 2,500 mcg tablet glucosamine sulfate 2KCl 500 1 tablet PO DAILY 06/18/19 08/25/23 History mg-msm 166.6 mg-chondroitin 400 mg tablet fluticasone propionate 50 2 spray intranasal DAILY 04/19/22 08/25/23 History mcg/actuation nasal spray,suspension gabapentin 100 mg capsule 100 mg PO TID 06/24/22 08/25/23 History solifenacin 10 mg tablet (Vesicare) 10 mg PO DAILY #90 tabs 09/20/22 08/25/23 Rx meloxicam 7.5 mg tablet 7.5 mg PO DAILY #90 tabs 06/27/23 08/25/23 Rx montelukast 10 mg tablet 10 mg PO DAILY #90 tabs 07/04/23 08/25/23 Rx Dha 500 mg PO DAILY 08/25/23 08/25/23 History budesonide 0.25 mg/2 mL suspension 0.25 mg irrigation DAILY 08/25/23 08/25/23 History for nebulization ferrous sulfate 325 mg (65 mg 325 mg PO DAILY 08/25/23 08/25/23 History iron) tablet (iron) metoprolol succinate 100 mg 100 mg PO DAILY #90 tabs 08/26/23 09/15/23 Rx tablet,extended release 24 hr levothyroxine 112 mcg tablet 112 mcg PO DAILY 09/15/23 09/15/23 History Patient hx anesthesia problems: none Family hx anesthesia problems: none Results Review: All pre-operative results and documents have been reviewed as part of the pre-operative evaluation. [facility] Past Medical History Medical History Arthritis Chronic cough GERD without esophagitis History of vaginal delivery HTN (hypertension) Hypothyroidism Osteoporosis Stress incontinence Vitamin D deficiency Vocal cord dysfunction Surgical History Surgical History H/O shoulder surgery (~06/16/22) History of dilation and curettage Family History Family History Father Hypertension Family history of diabetes mellitus in first degree relative Sibling Family history of diabetes mellitus in first degree relative Grandparent Family history of malignant neoplasm Sibling Cerebrovascular accident Social History Social History (Updated 08/24/23 @ 10:48 by Griselda Momin CMA) Social History: Mayi is , she lives with her Gorge in [place]. She is unemployed. Smoking status: Never smoker Second hand tobacco smoke exposure: No Alcohol intake: current Alcohol use details: 1/MONTH Substance use: never Substance use type: does not use Lack of Transportation: No Lack of Food: Never True Current Housing: I Have Housing Concerned About Future Housing: No Difficulty Paying Gas/Electric Bills: No Difficulty Paying for Meds: No Currently Unemployed: No Education: Master's Degree or Higher Difficulty w/ Childcare or Family Care: No Living arrangements: with family Spiritual care concerns: No Anes - Eval Final PreProcedure Day of Procedure 09/21/23 09:41 Patient weight: obese Heart: regular rate and rhythm Lungs:
--- NOTE | 2023-09-21 10:08 | PM.HPGS ---
History of Present Illness History of Present Illness Consent: Risks, benefits, and alternatives have been discussed and questions answered. Patient agrees to proceed with procedure. Chief complaint: neoplasm screening Narrative: Mayi Nielson is a 67 year old female here for colonoscopy, last one 10 years ago Review of Systems Constitutional: Constitutional: Denies headache(s) and Denies weakness Eyes: Eyes: Denies blurry vision ENT: Reports Normal hearing present, Denies headache(s) and Denies neck pain Cardiovascular: Cardiovascular: Denies chest pain and Denies dyspnea Respiratory: Respiratory: Denies dyspnea Gastrointestinal: Gastrointestinal: Reports no additional gastrointestinal complaints Genitourinary: Genitourinary: Denies dysuria Musculoskeletal: Musculoskeletal: Denies neck pain Integumentary/Breasts: Skin/Breast: Denies dry skin Neurologic: Reports Normal hearing present, Denies headache(s) and Denies weakness Psychiatric: Psychiatric: Denies anxiety Endocrine: Endocrine: Denies change in body appearance Hematologic/Lymphatic: Hematologic/Lymphatic: Denies easy bleeding Allergic/Immunologic: Allergic/Immunologic: Denies urticaria PMFSH Past Medical History Medical History Arthritis Chronic cough GERD without esophagitis History of vaginal delivery HTN (hypertension) Hypothyroidism Osteoporosis Stress incontinence Vitamin D deficiency Vocal cord dysfunction Surgical History Surgical History H/O shoulder surgery (~06/16/22) History of dilation and curettage Family History Family History Father Hypertension Family history of diabetes mellitus in first degree relative Sibling Family history of diabetes mellitus in first degree relative Grandparent Family history of malignant neoplasm Sibling Cerebrovascular accident Social History Social History (Updated 08/24/23 @ 10:48 by Griselda Momin CMA) Social History: Mayi is , she lives with her Gorge in [place]. She is unemployed. Smoking status: Never smoker Second hand tobacco smoke exposure: No Alcohol intake: current Alcohol use details: 1/MONTH Substance use: never Substance use type: does not use Lack of Transportation: No Lack of Food: Never True Current Housing: I Have Housing Concerned About Future Housing: No Difficulty Paying Gas/Electric Bills: No Difficulty Paying for Meds: No Currently Unemployed: No Education: Master's Degree or Higher Difficulty w/ Childcare or Family Care: No Living arrangements: with family Spiritual care concerns: No Meds Home Medications and Allergies Home Medications Medication Instructions Recorded Confirmed Type calcium carb,cit ER 600 mg-vit D3 1 tablet PO DAILY 06/18/19 08/25/23 History 12.5 mcg (500 unit) tablet,ext.rel cholecalciferol (vitamin D3) 50 2,000 unit PO DAILY 06/18/19 08/25/23 History mcg (2,000 unit) capsule cyanocobalamin (vitamin B-12) 2,500 mcg PO DAILY 06/18/19 08/25/23 History 2,500 mcg tablet glucosamine sulfate 2KCl 500 1 tablet PO DAILY 06/18/19 08/25/23 History mg-msm 166.6 mg-chondroitin 400 mg tablet fluticasone propionate 50 2 spray intranasal DAILY 04/19/22 08/25/23 History mcg/actuation nasal spray,suspension gabapentin 100 mg capsule 100 mg PO TID 06/24/22 08/25/23 History solifenacin 10 mg tablet (Vesicare) 10 mg PO DAILY #90 tabs 09/20/22 08/25/23 Rx meloxicam 7.5 mg tablet 7.5 mg PO DAILY #90 tabs 06/27/23 08/25/23 Rx montelukast 10 mg tablet 10 mg PO DAILY #90 tabs 07/04/23 08/25/23 Rx Dha 500 mg PO DAILY 08/25/23 08/25/23 History budesonide 0.25 mg/2 mL suspension 0.25 mg irrigation DAILY 08/25/23 08/25/23 History for nebulization ferrous sulfate 325 mg (65 mg 325 mg P
[2023-09-21 10:27] VITALS: BP 95/58; PULSE 56; RESP 20; O2SAT 99
[2023-09-21 10:37] VITALS: BP 96/64; PULSE 67; RESP 18; O2SAT 97
[2023-09-21 10:47] VITALS: BP 109/69; PULSE 62; RESP 18; O2SAT 100
== END 2023-09-21 10:52 | disposition home or self-care (01) ==
PROVIDERS: PCP Family Medicine; Visit Provider Internal Medicine Gastroenterology
PROC: 0DJD8ZZ Inspection of Lower Intestinal Tract, Via Natural or Artificial Opening Endoscopic (ICD-10-PCS; CPT 45378; principal; 2023-09-21 10:30)
DX: Z12.11 Encounter for screening for malignant neoplasm of colon (principal); K63.5 Polyp of colon; K64.8 Other hemorrhoids; Z79.51 Long term (current) use of inhaled steroids; I10 Essential (primary) hypertension; E03.9 Hypothyroidism, unspecified; M81.0 Age-related osteoporosis without current pathological fracture; E55.9 Vitamin D deficiency, unspecified; K21.9 Gastro-esophageal reflux disease without esophagitis; N39.3 Stress incontinence (female) (male); E66.9 Obesity, unspecified; Z68.29 Body mass index [BMI] 29.0-29.9, adult
CPT/HCPCS: 45385; 88305; J2704; J7120

== ENCOUNTER 2024-01-24 14:50 | Outpatient (CLI) | payer MEDICARE, SELFPAY ==
--- NOTE | ~2024-01-24 | MM_ITS ---
EXAMINATION: MM screening denis BI w osvaldo HISTORY: Screening TECHNIQUE: Craniocaudal and mediolateral oblique 3-D tomosynthesis images were obtained and synthetic 2-D images were generated. CAD analysis was submitted and interpreted. COMPARISON: Comparison to multiple prior studies sequentially, with oldest reviewed study dated 12/01. BREAST PARENCHYMAL COMPOSITION: Not dense: There are scattered areas of fibroglandular density. FINDINGS: There is an increasing number of clustered calcifications in the upper outer quadrant of th e right breast. The left breast is stable without evidence for malignancy. IMPRESSION: 1. Increasing number of clustered calcifications upper outer quadrant of the right breast. 2. Magnification views are recommended. BI-RADS Category 0: Incomplete: Needs additional imaging evaluation. Reviewed, dictated and finalized at location B. IMPRESSION: 1. Increasing number of clustered calcifications upper outer quadrant of the ri ght breast. 2. Magnification views are recommended. BI-RADS Category 0: Incomplete: Needs additional imaging evaluation.
== END 2024-01-24 14:51 ==
LOC: MICIMG 14:51
PROVIDERS: PCP Obstetrics & Gynecology; Visit Provider Obstetrics & Gynecology
DX: Z12.31 Encounter for screening mammogram for malignant neoplasm of breast (principal); R92.8 Other abnormal and inconclusive findings on diagnostic imaging of breast
CPT/HCPCS: 77063; 77067

== ENCOUNTER 2024-02-17 09:19 | Outpatient (CLI) | payer MEDICARE, SELFPAY ==
--- NOTE | ~2024-02-17 | MM_ITS ---
EXAMINATION: MM diagnostic mammo unilat RT HISTORY: Right breast microcalcifications TECHNIQUE: Additional spot magnification images of the right breast were performed and synthetic 2-D images were generated. CAD analysis was submitted and interpreted. COMPARISON: 01/24/2024, 12/01/2022, 11/10/2021, 10/01/2020 FINDINGS: There are scattered fibroglandular densities. Spot magnification views again demonstrate microcalcifications, loosely grouped at the upper, outer r ight breast, with adjacent biopsy clips. Calcifications are somewhat amorphous and speckled, and my o monroe are mildly increased since 2020, but essentially stable as compared to exams from 2021 and . As such, these are probably benign. IMPRESSION: Probably benign microcalcifications in the right breast. Six-month follow-up exam of the right breast recommended to reassess. BI-RADS category 3, probably benign findings. Reviewed, dictated and finalized at location M. IMPRESSION: Probably benign microcalcifications in the right breast. Six-month follow-up ex am of the right breast recommended to reassess. BI-RADS category 3, probably benign findings.
== END 2024-02-17 09:20 ==
LOC: MICIMG 09:20
PROVIDERS: PCP Obstetrics & Gynecology; Visit Provider Obstetrics & Gynecology
DX: R92.8 Other abnormal and inconclusive findings on diagnostic imaging of breast (principal)
CPT/HCPCS: 77065

== ENCOUNTER 2024-07-31 09:58 | Outpatient (CLI) | payer MEDICARE, SELFPAY ==
--- NOTE | ~2024-07-31 | MM_ITS ---
EXAMINATION: MM diagnostic denis RT w osvaldo HISTORY: Follow-up breast calcifications. TECHNIQUE: Additional 3-D tomosynthesis images of the right breast were performed and synthetic 2-D i mages were generated. CAD analysis was submitted and interpreted. COMPARISON: Comparison to multiple prior studies sequentially, with oldest reviewed study dated 04/2019. BREAST PARENCHYMAL COMPOSITION: Not dense: There are scattered areas of fibroglandular density. FINDINGS: Right breast calcifications centered in the upper outer quadrant of the right breast are no t significantly changed from prior examinations, likely benign. IMPRESSION: 1. Probable benign right breast calcifications. 2. Recommend 6 month follow-up diagnostic bilateral mammogram BI-RADS category 3, probably benign findings. Reviewed, dictated and finalized at location B. [facility]
== END 2024-07-31 09:59 | disposition home or self-care (01) ==
LOC: MICIMG 09:59
PROVIDERS: PCP Family Medicine; Visit Provider Obstetrics & Gynecology
DX: R92.8 Other abnormal and inconclusive findings on diagnostic imaging of breast (principal)
CPT/HCPCS: 77061; 77065; G0279

== ENCOUNTER 2025-04-12 08:53 | Outpatient (CLI) | payer MEDICARE, SELFPAY ==
--- NOTE | ~2025-04-12 | MM_ITS ---
EXAMINATION: MM diagnostic denis BI w osvaldo HISTORY: Six-month follow-up TECHNIQUE: 3-D tomosynthesis images of the breasts were performed and synthetic 2-D images were generated. CAD analysis was submitted and interpreted. COMPARISON: 07/31/2024, 02/09/2024, 01/24/2024, 12/01/2022, 11/10/2021 BREAST PARENCHYMAL COMPOSITION:Not Dense. The breasts are almost entirely fatty FINDINGS: Parenchymal pattern of both breasts is unchanged. Stable benign- appearing calcifications in the right breast. No suspicious mass lesion or distortion. IMPRESSION: No mammographic evidence for malignancy. BI-RADS Category 2: Benign finding(s). Reviewed, dictated and finalized at location .
== END 2025-04-12 08:54 | disposition home or self-care (01) ==
LOC: MICIMG 08:54
PROVIDERS: PCP Family Medicine; Visit Provider Obstetrics & Gynecology
DX: R92.8 Other abnormal and inconclusive findings on diagnostic imaging of breast (principal)
CPT/HCPCS: 77062; 77066; G0279